=== PATIENT | male | born 1965 | race Caucasian/White ===

== ENCOUNTER 2016-12-22 20:08 | Emergency (ER) | payer BC ==
[~2016-12-22] VITALS: Ht 175.3 cm; Wt 68.0 kg
[~2016-12-22 20:08] MED LIST: FAMO-131 PO; HYDR-548 PO; IBUP-1955 PO; OXYC-34 PO
[2016-12-22] MEDS ORDERED: FAMOTIDINE (20 MG) 20 MG TABLET ONE (20:57)
[2016-12-22] MEDS ORDERED: MAG HYDROX/AL HYDROX/SIMETH 30 ML UDC ONE (20:57)
[2016-12-22] MEDS ORDERED: FAMOTIDINE (20 MG) 20 MG TABLET PO ONE (21:00)
[2016-12-22] MEDS ORDERED: MAG HYDROX/AL HYDROX/SIMETH 30 ML UDC PO ONE (21:00)
[2016-12-22 21:02] VITALS: BP 126/68
== END 2016-12-22 21:06 | disposition home or self-care (01) ==
LOC: ER 20:17
DX: Z76.0 Encounter for issue of repeat prescription (principal); K29.70 Gastritis, unspecified, without bleeding; I10 Essential (primary) hypertension; K21.9 Gastro-esophageal reflux disease without esophagitis; F41.9 Anxiety disorder, unspecified; F32.9 Major depressive disorder, single episode, unspecified; F17.200 Nicotine dependence, unspecified, uncomplicated
CPT/HCPCS: A4606; Z7610

== ENCOUNTER 2017-05-07 15:12 | Emergency (ER) | payer BC ==
[~2017-05-07] VITALS: Ht 175.3 cm; Wt 68.0 kg
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
[2017-05-07] MEDS ORDERED: ACETAMINOPHEN 325 MG TABLET ONE (15:33)
[2017-05-07] MEDS ORDERED: ACETAMINOPHEN 650 MG/20.3 ML UDC PO STA (15:33)
--- NOTE | 2017-05-07 16:41 | NUR ---
Patient discharged to home in stable condition. Written and verbal after care instructions given. Patient verbalizes understanding of instruction.
[2017-05-07 16:42] VITALS: BP 127/77
== END 2017-05-07 16:43 | disposition home or self-care (01) ==
LOC: ER 15:18
DX: M25.561 Pain in right knee (principal); F32.9 Major depressive disorder, single episode, unspecified; F41.9 Anxiety disorder, unspecified; I10 Essential (primary) hypertension; K21.9 Gastro-esophageal reflux disease without esophagitis; F17.200 Nicotine dependence, unspecified, uncomplicated; V19.9XXA Pedal cyclist (driver) (passenger) injured in unspecified traffic accident, initial encounter; Y93.01 Activity, walking, marching and hiking; Y92.89 Other specified places as the place of occurrence of the external cause; Y99.9 Unspecified external cause status
CPT/HCPCS: 29505; 73564; 99284; A4606; Z7610